=== PATIENT | female | born 2000 | race African-American/Black ===

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

== ENCOUNTER 2018-01-16 21:11 | Observation (INO) | payer MEDICAID ==
[~2018-01-16] VITALS: Ht 165.1 cm; Wt 101.6 kg
[2018-01-16 22:05] LABS: APPEARANCE,URINE Clear (CLEAR); BILIRUBIN,URINE Negative (NEGATIVE); COLOR,URINE Yellow (YELLOW); GLUCOSE, URINE (UA) Negative (NEGATIVE); KETONES,URINE Trace mg/dL (NEGATIVE); LEUKOCYTE ESTERASE ,URINE Negative (NEGATIVE); NITRATE,URINE Negative (NEGATIVE); OCCULT BLOOD,URINE Negative (NEGATIVE); PROTEIN,URINE Negative (NEGATIVE)
[2018-01-16 22:20] LABS: AMPHET/METH SCREEN,URINE NEGATIVE (NEGATIVE); BARBITURATE SCREEN, URINE NEGATIVE (NEGATIVE); BENZODIAZEPINES SCREEN,URINE NEGATIVE (NEGATIVE); CANNABINOID SCREEN,URINE NEGATIVE (NEGATIVE); COCAINE SCREEN,URINE NEGATIVE (NEGATIVE); OPIATE SCREEN,URINE NEGATIVE (NEGATIVE); PHENCYCLIDINE SCREEN,URINE NEGATIVE (NEGATIVE)
[2018-01-16] MEDS ORDERED: LACTATED RINGERS 1000ML IV SCH (22:45)
[2018-01-16 22:51] VITALS: BP 102/56
== END 2018-01-17 00:20 | disposition home or self-care (01) ==
LOC: EDH 21:11 → LDH 22:10
PROVIDERS: ADMIT Obstetrics & Gynecology; ATTEND Obstetrics & Gynecology
DX: O62.9 Abnormality of forces of labor, unspecified (principal); O26.893 Other specified pregnancy related conditions, third trimester; R42 Dizziness and giddiness; Z3A.30 30 weeks gestation of pregnancy; Z79.899 Other long term (current) drug therapy
CPT/HCPCS: 80305; 81003; 99284; G0378 ×2; 96360

== ENCOUNTER 2018-02-11 20:20 | Observation (INO) | payer MEDICAID ==
[~2018-02-11] VITALS: Ht 165.1 cm; Wt 105.2 kg
[2018-02-11 21:07] LABS: APPEARANCE,URINE Clear (CLEAR); BILIRUBIN,URINE Negative (NEGATIVE); COLOR,URINE Yellow (YELLOW); GLUCOSE, URINE (UA) 250 mg/dL (NEGATIVE); KETONES,URINE Trace mg/dL (NEGATIVE); LEUKOCYTE ESTERASE ,URINE Negative (NEGATIVE); NITRATE,URINE Negative (NEGATIVE); OCCULT BLOOD,URINE Negative (NEGATIVE); PROTEIN,URINE Negative (NEGATIVE)
[2018-02-11 21:17] LABS: AMPHET/METH SCREEN,URINE NEGATIVE (NEGATIVE); BARBITURATE SCREEN, URINE NEGATIVE (NEGATIVE); BENZODIAZEPINES SCREEN,URINE NEGATIVE (NEGATIVE); CANNABINOID SCREEN,URINE NEGATIVE (NEGATIVE); COCAINE SCREEN,URINE NEGATIVE (NEGATIVE); OPIATE SCREEN,URINE NEGATIVE (NEGATIVE); PHENCYCLIDINE SCREEN,URINE NEGATIVE (NEGATIVE)
== END 2018-02-11 22:32 | disposition home or self-care (01) ==
LOC: EDH 20:20 → LDH 20:39
PROVIDERS: ADMIT Obstetrics & Gynecology; ATTEND Obstetrics & Gynecology
DX: O60.03 Preterm labor without delivery, third trimester (principal); Z3A.33 33 weeks gestation of pregnancy; Z79.899 Other long term (current) drug therapy
CPT/HCPCS: 80305; 81003; G0378 ×2

== ENCOUNTER 2018-03-10 12:17 | Observation (INO) | payer MEDICAID ==
[~2018-03-10] VITALS: Ht 165.1 cm; Wt 59.0 kg
[2018-03-10 13:23] LABS: APPEARANCE,URINE Clear (CLEAR); BILIRUBIN,URINE Negative (NEGATIVE); COLOR,URINE Yellow (YELLOW); GLUCOSE, URINE (UA) Negative (NEGATIVE); KETONES,URINE Trace mg/dL (NEGATIVE); LEUKOCYTE ESTERASE ,URINE Negative (NEGATIVE); NITRATE,URINE Negative (NEGATIVE); OCCULT BLOOD,URINE Negative (NEGATIVE); PROTEIN,URINE Negative (NEGATIVE)
[2018-03-10 13:34] LABS: BACTERIA,URINE Rare /HPF (None Seen); MUCUS,URINE Rare LPF (None Seen); RBC,URINE 0-1 /HPF (0-1); SQUAMOUS EPITHELIAL CELL,UR Rare /HPF (0-2); WBC,URINE 0-1 /HPF (0-1)
[2018-03-10 14:00] VITALS: BP 99/59
== END 2018-03-10 13:59 | disposition home or self-care (01) ==
LOC: LDH 12:17
PROVIDERS: ADMIT Obstetrics & Gynecology; ATTEND Obstetrics & Gynecology
DX: O26.893 Other specified pregnancy related conditions, third trimester (principal); R10.9 Unspecified abdominal pain; Z3A.37 37 weeks gestation of pregnancy
CPT/HCPCS: 59025; 76819; 81001; G0378 ×3

== ENCOUNTER 2018-03-23 05:32 | Inpatient (IN) | payer MEDICAID | END 2018-03-26 13:00 | disposition home or self-care (01) | LOC: LDH 05:32 → WSH 03-25 17:20 | PROC: 10D00Z1 Extraction of Products of Conception, Low, Open Approach (ICD-10-PCS; principal; 2018-03-23 06:41) | DX: O34.211 Maternal care for low transverse scar from previous cesarean delivery (principal); N85.8 Other specified noninflammatory disorders of uterus; Z3A.00 Weeks of gestation of pregnancy not specified; Z37.0 Single live birth ==

== ENCOUNTER 2019-02-22 19:45 | Observation (INO) | payer MEDICAID ==
[~2019-02-22] VITALS: Ht 165.1 cm; Wt 107.0 kg
[2019-02-22] MEDS ORDERED: LACTATED RINGERS 1000ML 1,000 ML IV SCH (20:00)
[2019-02-22] MEDS ORDERED: PREN-196 PO (20:08)
[2019-02-22 21:06] LABS: APPEARANCE,URINE Clear (CLEAR); BILIRUBIN,URINE Negative (NEGATIVE); COLOR,URINE Yellow (YELLOW); GLUCOSE, URINE (UA) Negative (NEGATIVE); KETONES,URINE Negative (NEGATIVE); LEUKOCYTE ESTERASE ,URINE Trace (NEGATIVE); NITRATE,URINE Negative (NEGATIVE); OCCULT BLOOD,URINE Negative (NEGATIVE); PH,URINE 6.5 (5.0-8.0); PROTEIN,URINE Negative (NEGATIVE)
[2019-02-22 21:13] LABS: AMPHET/METH SCREEN,URINE NEGATIVE (NEGATIVE); BARBITURATE SCREEN, URINE NEGATIVE (NEGATIVE); BENZODIAZEPINES SCREEN,URINE NEGATIVE (NEGATIVE); CANNABINOID SCREEN,URINE NEGATIVE (NEGATIVE); COCAINE SCREEN,URINE NEGATIVE (NEGATIVE); OPIATE SCREEN,URINE NEGATIVE (NEGATIVE); PHENCYCLIDINE SCREEN,URINE NEGATIVE (NEGATIVE)
[2019-02-22 21:40] LABS: BACTERIA,URINE Few /HPF (None Seen); RBC,URINE None Seen /HPF (0-1); WBC,URINE 0-1 /HPF (0-1)
[2019-02-22 21:41] LABS: SQUAMOUS EPITHELIAL CELL,UR 0-2 /HPF (0-2)
[2019-02-22 22:19] VITALS: BP 99/49
== END 2019-02-22 23:00 | disposition home or self-care (01) ==
LOC: LDH 19:45
PROVIDERS: ADMIT Obstetrics & Gynecology; ATTEND Obstetrics & Gynecology
DX: O34.63 Maternal care for abnormality of vagina, third trimester (principal); N89.8 Other specified noninflammatory disorders of vagina; Z3A.30 30 weeks gestation of pregnancy
CPT/HCPCS: 76815; 80305; 81001; 82120 ×2; G0378 ×3

== ENCOUNTER 2019-04-25 08:01 | Observation (INO) | payer MEDICAID ==
[~2019-04-25] VITALS: Ht 165.1 cm; Wt 108.4 kg
[2019-04-25] MEDS ORDERED: LACTATED RINGERS 1000ML 1,000 ML IV SCH (09:15)
[2019-04-25 09:34] LABS: APPEARANCE,URINE Clear (CLEAR); BILIRUBIN,URINE Negative (NEGATIVE); COLOR,URINE Yellow (YELLOW); GLUCOSE, URINE (UA) Negative (NEGATIVE); KETONES,URINE Negative (NEGATIVE); LEUKOCYTE ESTERASE ,URINE Large (NEGATIVE); NITRATE,URINE Negative (NEGATIVE); OCCULT BLOOD,URINE Negative (NEGATIVE); PH,URINE 6.5 (5.0-8.0); PROTEIN,URINE Negative (NEGATIVE)
[2019-04-25] MEDS: TERBUTALINE SULFATE VIAL 1MG/ML SQ PRN ×2 (09:35→10:02)
[2019-04-25 09:49] LABS: BACTERIA,URINE Few /HPF (None Seen); SQUAMOUS EPITHELIAL CELL,UR Moderate /HPF (0-2)
== END 2019-04-25 13:35 | disposition home or self-care (01) ==
LOC: LDH 08:01
PROVIDERS: ADMIT Obstetrics & Gynecology; ATTEND Obstetrics & Gynecology
DX: O60.03 Preterm labor without delivery, third trimester (principal); Z3A.39 39 weeks gestation of pregnancy
CPT/HCPCS: 81001; 96372; G0378 ×5; J3105; 96360

== ENCOUNTER 2024-09-11 23:23 | Emergency (ER) | payer SELFPAY ==
[~2024-09-11] VITALS: Ht 165.1 cm; Wt 119.9 kg
[2024-09-11 23:24] VITALS: TEMP 99
--- NOTE | 2024-09-12 00:11 | ERN ---
ED Note History of Present Illness Stated Complaint: NO MOVEMENT, ABD CRAMPING Chief Complaint: OB>20 weeks gest. Time Seen by MD: 23:39 Time Seen by Midlevel: 23:39 Dictation: The patient is a 23-year-old female with a history of patient of Dr. Aj crain who reports being 26 weeks and presents to the emergency department with complaints of lower abdominal pressure with decreased movements onset this morning when she woke up. Patient reports she woke up around 930. Patient denies any vaginal bleeding or discharge. Reports pain is worse with movement. ,due date December 13 Allergies: Coded Allergies: No Known Drug Allergies (Unverified Allergy, Unknown, 11/20/16) ALLERGIC TO PLUMS-RASH plum (Unverified Allergy, Unknown, 07/31/23) Home Meds Reported Medications Vit No.124/Iron/FA ( Vitamin Tablet) 1 Each Tablet, 1 EACH PO DAILY, TAB 02/22/19 Past Medical History Past Medical History: No Pertinent History Surgical History: : 5 Para: 4 Aborts: 0 RN Note Reviewed/Agreed w/PFSH: Yes Review of System Dictation Constitutional: Negative for fever,chills, and weight loss Eyes: Negative for injury, pain,redness, and discharge ENT: Negative for injury,pain or swelling Cardiovascular: Negative for chest pain, palpitations, and edema Respiratory: Negative for shortness of breath, cough, and wheezing, Abdomen/GI: Negative for , nausea, vomiting, diarrhea, and constipation positive for abdominal pain, decreased movements Back: Negative for injury and pain : Negative for injury, bleeding and discharge MS/Extremity: Negative for injury and deformity Skin: Negative for rash, and discoloration Neuro: Negative for headache, weakness, numbness, tingling, and seizure Psych: Negative for suicide ideation, homicidal ideation, and hallucinations Initial Vital Sign VS Vital Signs Date Time Temp Pulse Resp B/P (MAP) Pulse Ox O2 Delivery O2 Flow Rate FiO2 09/11/24 23:24 99.0 110 20 127/73 99 Room Air 09/12/24 00:47 0 21 Physical Exam Dictation Vital Signs reviewed General Appearance: Alert, oriented x 3, no acute distress, well developed, nourished. Head and Face: non-traumatic. Eyes: PERRL, pink conjunctivas, eyelid no trauma, anterior chamber with arcus senilis. Ears: Pinnas intact and no signs of trauma or erythema ear canals clear and no discharge TM no erythema Nose: No discharge, no bleeding. Oropharynx: Mouth normal, tongue pink. pharynx clear,no erythema, tonsils no exudates, no abscesses noted, mucous membrane moist Neck: Supple, non-tender, no thyromegaly, no masses, no JVD, no bruits Breast:Deferred Chest:No tenderness, no crepitus, no paradoxical movement, no retractions Lungs:Clear, well-ventilated, symmetric, no rales, no wheezing, no rhonchi, no stridor, good breath sounds bilaterally Heart: Regular rate, regular rhythm, no murmur, no gallops Vascular: no peripheral edema, Abdomen: Firm, positive bowel sounds, distended, no guarding, nontender, no rebound, no masses no hepatomegaly, no splenomegaly, no Paul's sign, no hernias. Rectal: Deferred Genital: Deferred Neurological: Normal speech, motor function intact, sensory function intact Musculoskeletal: Neck nontender, full range of motion, back nontender, full range of motion, Extremities: nontender, full range of motion Skin: Color pink, dry, no turgor, no rash, no lacerations, no abrasions, no contusions. Lymphatic: Deferred Results (Laboratory/Radiology) Laboratory/Radiology Laboratory Tests Test 09/12/24 00:25 09/12/24 00:39 White Blood Count 10.0 K/uL (4.8-10.8) Red Blood Count 3.34 MIL/uL (4.00-5.50) L Hemoglobin 9.3 g/dL (12.0-16.0) L Hematocrit 27.8 % (36-48) L Mean Corpuscular Volume 83.2 fL (79-99) Mean Corpuscular Hemoglobin 27.8 pg (27.0-33.0) Mean Corpuscular Hemoglobin Concent 33.5 g/dL (32.0-36.0) Red Cell Distribution Width 14.6 % (11.0-15.5) Platelet Count 233 K/uL (130-400) Mean Platelet Volume 10.5 fL (7.5-10.5) Immature Granulocyte % (Auto) 0.5 % (0-1) Neutrophils (%) (Auto) 61.8 % (40.0-77.0) Lymphocytes (%) (Auto) 27.2 % (21.0-51.0) Monocytes (%) (Auto) 8.9 % (3.0-13.0) Eosinophils (%) (Auto) 1.2 % (0.0-8.0) Basophils (%) (Auto) 0.4 % (0.0-5.0) Neutrophils # (Auto) 6.2 K/uL (1.8-7.7) Lymphocytes # (Auto) 2.7 K/uL (1.0-4.8) Monocytes # (Auto) 0.9 K/uL (0.1-1.0) Eosinophils # (Auto) 0.12 K/uL (0.00-0.70) Basophils # (Auto) 0.04 K/uL (0.00-0.20) Absolute Immature Granulocyte (auto 0.05 K/uL (0-1) Nucleated Red Blood Cells 0.0 % (0.0-0.19) Sodium Level 139 mmol/L (136-145) Potassium Level 3.4 mmol/L (3.5-5.1) L Chloride Level 107 mmol/L (101-111) Carbon Dioxide Level 25 mmol/L (21-32) Blood Urea Nitrogen 10 mg/dL (7-18) Creatinine 0.4 mg/dL (0.5-1.0) L Glomerular Filtration Rate Calc 141 mL/min (>90) Random Glucose 99 mg/dL (70-105) Total Calcium 8.2 mg/dL (8.5-10.1) L Human Chorionic Gonadotropin, Quant 43478 mIU/mL (0-5) H Urine Color YELLOW (YELLOW) Urine Appearance CLEAR (CLEAR) Urine pH 6.0 (5.0-8.0) Urine Specific [facility] 1.042 (1.001-1.031) Urine Protein 30 mg/dL (NEGATIVE) H Urine Glucose (UA) 50 mg/dL (NEGATIVE) H Urine Ketones 5 mg/dL (NEGATIVE) H Urine Occult Blood NEGATIVE (NEGATIVE) Urine Nitrate NEGATIVE (NEGATIVE) Urine Bilirubin NEGATIVE mg/dL (NEGATIVE) Urine Urobilinogen 4.0 mg/dL (0.2-1.0) H Urine Leukocyte Esterase NEGATIVE [place]/uL Urine RBC 2-5 /HPF (0-1) H Urine WBC 0-1 /HPF (0-1) Urine Squamous Epithelial Cells FEW /HPF (0-2) Urine Bacteria FEW /HPF (None Seen) REASON: abd pain ORDERING PHYSICIAN: SADI SADLER PROCEDURE: OB >14 - US OB >14 WEEKS EXAM: US Obstetrical, Complete >14 weeks CLINICAL HISTORY: Abdominal pain. TECHNIQUE: Transabdominal imaging of the maternal pelvis and a >14-week gestation with image documentation. COMPARISON: None provided. FINDINGS: FETUS: Single living intrauterine gestation. Cardiac activity present; heart rate: 125 bpm. activity noted. POSITION: Cephalic presentation. Longitudinal lie. Oblique spine. GESTATIONAL AGE (by ultrasound): Composite age: 27 weeks 0 days. Biometric measurements: BPD: 6.62 cm = 26w5d ???15 days. Head Circumference: 26.0 cm = 26w2d ???14 days. Abdominal Circumference: 22.3 cm = 26w5d ???15 days. Femur Length: 4.93 cm = 26w5d ???13 days. Cephalic Index: 89.9% (within normal limits). ESTIMATED WEIGHT: 980 g ??? 145 g (50th percentile for 27w0d). HC/AC RATIO: 1.17 (Normal range: 1.04???1.22). ANATOMY: Visualized structures include lateral ventricles, choroid plexus, cerebellum, cisterna magna, stomach, kidneys, bladder, spine, cord insertion, 3-vessel cord, and 4-chamber heart. No abnormalities noted. PLACENTA: Posterior. Maturity grade: 2. No previa or abruption. AMNIOTIC FLUID: Normal; KAYLA = 13.4 cm. CERVIX: Closed; cervical length = 4.0 cm. IMPRESSION: Single viable intrauterine at approximately 27 weeks of gestation by composite biometry. Normal anatomy and biometry. No acute abnormality. /[place] Labs Reviewed?: Yes ED Course ED Course Orders Procedure Category Date Status Time Cbc With Differential LAB 09/11/24 Complete 23:45 Abo/Rh BBK 09/11/24 Complete 23:45 Us Ob >14 Weeks US 09/11/24 Resulted 23:45 Acetaminophen 325 Tab PHA 09/12/24 Complete (Tylenol 325mg Tab 00:00 Basic Metabolic Panel LAB 09/11/24 Complete 23:45 Hcg,Quantitative LAB 09/11/24 Complete 23:45 Urinalysis Profile LAB 09/11/24 Complete 23:45 0.9%Nacl 1000ml (Ns PHA 09/12/24 Complete 1000ml) 01:30 Current Medications Medications (Trade) Dose Ordered Sig/Charles Route PRN Reason Start Time Stop Time Status Last Admin Dose Admin Acetaminophen (TYLenol 325MG TAB) 650 mg ONCE ONCE PO 09/12/24 00:00 09/12/24 00:01 DC 09/12/24 00:19 Sodium Chloride 1,000 ml @ 0 mls/hr ONCE ONCE IV 09/12/24 01:30 09/12/24 01:31 DC Vital Signs Date Time Temp Pulse Resp B/P (MAP) Pulse Ox O2 Delivery O2 Flow Rate FiO2 09/12/24 00:47 95 16 118/64 97 Room Air* 0 21 09/11/24 23:24 99.0 110 20 127/73 99 Room Air Medical Decision Making MDM The patient is a 23-year-old female with a history of patient of Dr. Aj crain who reports being 26 weeks and presents to the emergency department with complaints of lower abdominal pressure with decreased movements onset this morning when she woke up. Patient reports she woke up around 930. Patient denies any vaginal bleeding or discharge. Reports pain is worse with movement. ,due date December 13 CBC showed no leukocytosis, mild normocytic anemia, chemistry showed no electrolyte imbalance, normal renal function, urinalysis with no leukocyte esterase or nitrites. Ultrasound showed a single viable intrauterine at approximately 26 weeks gestation. Normal anatomy. No acute abnormality. Closed cervix heart rate of 125. I discussed case with Dr. Thorne. States patient can be safely discharged to follow up with OBGYN. Patient with lower abdominal pressure which is expected at this time. Patient with no vaginal bleeding or discharge. I discussed labs and imaging with the patient. Patient feels safe to be discharged and follow up with OBGYN. Patient instructed that if symptoms worsen, she develops severe pain or vaginal bleeding or discharge to return to ER immediately. Patient's agree with discharge planning. Differential diagnosis: Urinary tract infection, intrauterine demise, dehydration, electrolyte imbalance Need for hospitalization: Patient does not meet criteria for hospitalization. There are no social concerns with this patient. DX & DISP Disposition: Discharge Departure Impression: Primary Impression: 27 weeks gestation of Condition: Stable Additional Instructions: Please follow up with your OBGYN as soon as possible. If you develop severe abdominal pain, vaginal bleeding or discharge please return to ER or go to your nearest ER. FOLLOW-UP WITH PRIMARY CARE PROVIDER IN 1 TO 2 DAYS. TAKE MEDICATIONS DIRECTED HERE IN THE EMERGENCY ROOM. OKAY TO CONTINUE HOME MEDICATIONS UNLESS OTHERWISE DISCUSSED DURING YOUR VISIT IN THE EMERGENCY ROOM TODAY. RETURN TO YOUR NEAREST EMERGENCY ROOM IF SYMPTOMS WORSEN OR IF THERE IS NO IMPROVEMENT. CALL 911 IF YOU NEED IMMEDIATE ASSISTANCE. TAKE TYLENOL [id number] NEEDED AND IF NO CONTRAINDICATIONS ARE PRESENT. INCREASE ORAL HYDRATION. A WOUND CULTURE OR URINE CULTURE WAS ORDERED HERE IN THE EMERGENCY ROOM DEPARTMENT PLEASE FOLLOW-UP WITH PRIMARY CARE PROVIDER AND ADVISE THEM TO GET REPEAT PORTS FROM OUR FACILITY. IF YOU HAD ANY QIANA WRAP/SPLINTS THAT WERE APPLIED HERE, PLEASE DO NOT REMOVE THEM UNTIL YOU SEE YOUR PRIMARY CARE OR SPECIALTY. Referrals: AJ CRAIN MD (PCP) Time of Disposition: 01:49 I have reviewed the case, and I agree with, Diagnosis and Plan SADI SADLER Sep 12, 2024 00:11
[2024-09-12 00:49] LABS: APPEARANCE,URINE CLEAR (CLEAR); GLUCOSE, URINE (UA) 50 mg/dL (NEGATIVE); LEUKOCYTE ESTERASE ,URINE NEGATIVE Leu/uL (NEGATIVE); NITRATE,URINE NEGATIVE (NEGATIVE); OCCULT BLOOD,URINE NEGATIVE (NEGATIVE)
[2024-09-12 00:50] LABS: CREATININE 0.4 mg/dL (0.5-1.0); GLOMERULAR FILTR. RATE CALC 141.0 mL/min (>90); GLUCOSE,RANDOM 99.0 mg/dL (70-105); SODIUM SERUM 139.0 mmol/L (136-145); UREA NITROGEN, BLOOD 10.0 mg/dL (7-18)
[2024-09-12 00:52] LABS: ADD UA MICROSCOPIC YES
[2024-09-12 00:56] LABS: IMMATURE GRANULOCYTE ABSOLUTE 0.05 K/uL (0-1); NUCLEATED RED BLOOD CELLS 0.0 % (0.0-0.19); PLATELET COUNT (AUTO) 233 K/uL (130-400); RED BLOOD CELL COUNT(AUTO) 3.34 MIL/uL (4.00-5.50); RED CELL DISTRIBUTION WIDTH 14.6 % (11.0-15.5); WHITE BLOOD COUNT (AUTO) 10.0 K/uL (4.8-10.8)
[2024-09-12 01:04] LABS: SQUAMOUS EPITHELIAL CELL,UR FEW /HPF (0-2)
[2024-09-12 01:17] LABS: HCG,QUANTITATIVE 27337.0 mIU/mL (0-5)
--- NOTE | 2024-09-12 01:20 | HMCIMG ---
EXAM: US Obstetrical, Complete >14 weeks CLINICAL HISTORY: Abdominal pain. TECHNIQUE: Transabdominal imaging of the maternal pelvis and a >14-week gestation with image documentation. COMPARISON: None provided. FINDINGS: FETUS: Single living intrauterine gestation. Cardiac activity present; heart rate: 125 bpm. activity noted. POSITION: Cephalic presentation. Longitudinal lie. Oblique spine. GESTATIONAL AGE (by ultrasound): Composite age: 27 weeks 0 days. Biometric measurements: BPD: 6.62 cm = 26w5d ???15 days. Head Circumference: 26.0 cm = 26w2d ???14 days. Abdominal Circumference: 22.3 cm = 26w5d ???15 days. Femur Length: 4.93 cm = 26w5d ???13 days. Cephalic Index: 89.9% (within normal limits). ESTIMATED WEIGHT: 980 g ??? 145 g (50th percentile for 27w0d). HC/AC RATIO: 1.17 (Normal range: 1.04???1.22). ANATOMY: Visualized structures include lateral ventricles, choroid plexus, cerebellum, cisterna magna, stomach, kidneys, bladder, spine, cord insertion, 3-vessel cord, and 4-chamber heart. No abnormalities noted. PLACENTA: Posterior. Maturity grade: 2. No previa or abruption. AMNIOTIC FLUID: Normal; KAYLA = 13.4 cm. CERVIX: Closed; cervical length = 4.0 cm. IMPRESSION: Single viable intrauterine at approximately 27 weeks of gestation by composite biometry. Normal anatomy and biometry. No acute abnormality. /[place]
--- NOTE | 2024-09-12 01:52 | NUR ---
PT REFUSING IV AND IV FLUIDS. ER COMMERCIAL ACCOUNT OFFICER MADE AWARE.
[2024-09-12] MEDS: 0.9%NACL 1000ML 1,000 ML IV ONE (01:53)
[2024-09-12 01:55] VITALS: BP 134/83; PULSE 84; RESP 16; O2SAT 97
== END 2024-09-12 02:08 | disposition home or self-care (01) ==
LOC: EDH 23:23
DX: O36.8120 Decreased fetal movements, second trimester, not applicable or unspecified (principal); R10.2 Pelvic and perineal pain; Z3A.27 27 weeks gestation of pregnancy
CPT/HCPCS: 36415; 76805; 80048; 81001; 84702; 85025; 86900; 86901; 99284